=== PATIENT | female | born 1955 | race Caucasian/White ===

== ENCOUNTER 2016-10-28 15:13 | Emergency (ER) | payer BC ==
[~2016-10-28] VITALS: Ht 167.6 cm; Wt 75.0 kg
[~2016-10-28 15:13] MED LIST: ALPR-475 PO; ASPI325T4 PO; DOXY100T PO; IPRA3AMP NPPB; LISI-170 PO; NICO1PAT10 TD; PRED20TA PO; SIMV20TA PO
[2016-10-28 17:37] VITALS: BP 132/80
== END 2016-10-28 17:38 | disposition home or self-care (01) ==
LOC: ED 16:20
DX: I82.432 Acute embolism and thrombosis of left popliteal vein (principal); I10 Essential (primary) hypertension; J44.9 Chronic obstructive pulmonary disease, unspecified; Z88.0 Allergy status to penicillin; Z88.5 Allergy status to narcotic agent; Z88.6 Allergy status to analgesic agent; Z88.1 Allergy status to other antibiotic agents
CPT/HCPCS: 99284

== ENCOUNTER 2016-12-11 20:06 | Inpatient (IN) | payer BC ==
[~2016-12-11] VITALS: Ht 167.6 cm; Wt 78.1 kg
[~2016-12-11 20:06] MED LIST changes: +ASPI325T17 PO; -ASPI325T4 PO
[2016-12-11] MEDS ORDERED: ALBUTEROL/IPRATROPIUM 2.5MG/0.5MG, 3 ML ONE ×2 (20:26)
[2016-12-11] MEDS ORDERED: SODIUM CHLORIDE FLUSH 10ML SYR IVF ONE (20:30)
[2016-12-11] MEDS ORDERED: methylPREDNISolone SOD SUCC 125 MG/2 ML ONE (20:30)
[2016-12-11] MEDS ORDERED: methylPREDNISolone SOD SUCC 125 MG/2 ML IVP ONE (20:30)
[2016-12-11] MEDS ORDERED: SODIUM CHLORIDE 0.9% 1,000ML IVBOLUS ONE (20:30)
[2016-12-11] MEDS ORDERED: ALBUTEROL/IPRATROPIUM 2.5MG/0.5MG, 3 ML NPPB PRN (20:30)
[2016-12-11] MEDS ORDERED: ONDANSETRON 2MG/ML, 2ML ONE (20:30)
[2016-12-11] MEDS ORDERED: ONDANSETRON 2MG/ML, 2ML IVP ONE (20:30)
[2016-12-11 20:48] LABS: HEMATOCRIT 46.1 % (34.6-47.8); HEMOGLOBIN 15.8 g/dL (11.7-16.4); WHITE BLOOD COUNT 9.2 x10^3/uL (3.4-10)
[2016-12-11 21:01] LABS: ASPARTATE AMINO TRANSFERASE 14 U/L (15-37); BLOOD UREA NITROGEN 18 mg/dL (7-18)
[2016-12-11 21:05] LABS: IS PT STATUS REG ER OR PRE ER? YES
[2016-12-11] MEDS: ALBUTEROL/IPRATROPIUM 2.5MG/0.5MG, 3 ML NPPB SCH ×2 (21:08→21:15)
[2016-12-11] MEDS ORDERED: RIVA20TA PO (22:18)
[2016-12-11] MEDS ORDERED: TEMAZEPAM 15 MG CAPSULE PO PRN (23:30)
[2016-12-11] MEDS ORDERED: ACETAMINOPHEN 325 MG TABLET PO PRN (23:30)
[2016-12-11] MEDS ORDERED: DOCUSATE 100 MG CAPSULE PO PRN (23:30)
[2016-12-11] MEDS ORDERED: GUAIFENESIN/DM 200-20MG, 10ML UDC PO PRN (23:30)
[2016-12-11] MEDS ORDERED: ONDANSETRON ODT 4 MG PO PRN (23:30)
[2016-12-11] MEDS ORDERED: LABETALOL 5MG/ML, 20ML IVPush PRN (23:30)
[2016-12-11] MEDS ORDERED: ONDANSETRON 2MG/ML, 2ML IVPush PRN (23:30)
[2016-12-11] MEDS ORDERED: AZITHROMYCIN 500 MG TABLET PO SCH (23:30)
[2016-12-11] MEDS ORDERED: ENALAPRILAT 1.25 MG/ML, 2ML IVPush PRN (23:30)
[2016-12-11] MEDS ORDERED: HEPARIN 5,000 UNITS/ML, 1ML SQ SCH (23:30)
[2016-12-12] MEDS ORDERED: AZITHROMYCIN 250 MG TABLET ONE (00:18)
[2016-12-12] MEDS ORDERED: LEVOFLOXACIN 500 MG TABLET ONE (00:33)
[2016-12-12] MEDS: LEVOFLOXACIN 500 MG TABLET PO SCH ×2 (00:38→21:37)
[2016-12-12 01:55] VITALS: BP 161/98
[2016-12-12] MEDS: methylPREDNISolone SOD SUCC 40 MG/ML IVPush SCH ×4 (03:42→21:37)
[2016-12-12] MEDS: NICOTINE 14MG/24 HR PATCH.TD24 TD SCH (03:43)
[2016-12-12 06:35] VITALS: BP 157/96
[2016-12-12] MEDS: LISINOPRIL 10 MG TABLET PO SCH (10:12)
[2016-12-12] MEDS: FAMOTIDINE 20 MG TABLET PO SCH ×2 (10:13→21:36)
[2016-12-12] MEDS: RIVAROXABAN 20 MG TABLET PO SCH (10:18)
[2016-12-12] MEDS ORDERED: ALBUTEROL/IPRATROPIUM 2.5MG/0.5MG, 3 ML ONE (17:01)
[2016-12-12 17:18] VITALS: BP 160/96
[2016-12-12 19:50] VITALS: BP 154/92
[2016-12-12] MEDS: ALBUTEROL/IPRATROPIUM 2.5MG/0.5MG, 3 ML NPPB SCH (20:15)
[2016-12-12] MEDS ORDERED: SIMVASTATIN 20 MG TABLET PO SCH (21:00)
[2016-12-13 01:37] VITALS: BP 143/83
[2016-12-13] MEDS: ALBUTEROL/IPRATROPIUM 2.5MG/0.5MG, 3 ML NPPB SCH ×2 (02:15→06:27)
[2016-12-13] MEDS: RIVAROXABAN 20 MG TABLET PO SCH (06:00)
[2016-12-13] MEDS: methylPREDNISolone SOD SUCC 40 MG/ML IVPush SCH (06:00)
[2016-12-13] MEDS: NICOTINE 14MG/24 HR PATCH.TD24 TD SCH (06:01)
[2016-12-13 06:40] VITALS: BP 124/74
[2016-12-13] MEDS ORDERED: GUAI12009 PO (09:08)
[2016-12-13] MEDS ORDERED: LISI-167 PO (09:08)
[2016-12-13] MEDS ORDERED: IPRA3AMP NPPB (09:08)
[2016-12-13] MEDS ORDERED: SIMV20TA3 PO (09:08)
[2016-12-13] MEDS ORDERED: LEVO500T47 PO (09:08)
[2016-12-13] MEDS ORDERED: PRED10TA PO (09:08)
[2016-12-13] MEDS: FAMOTIDINE 20 MG TABLET PO SCH (10:05)
[2016-12-13] MEDS: LISINOPRIL 10 MG TABLET PO SCH (10:05)
[2016-12-13 12:14] VITALS: BP 151/84
[2016-12-13] MEDS ORDERED: ALBUTEROL/IPRATROPIUM 2.5MG/0.5MG, 3 ML NPPB SCH (16:00)
== END 2016-12-13 14:25 | disposition home or self-care (01) | DRG 189 ==
LOC: ED 23:16 → EDIP 23:17 → 4EST 12-12 00:55 → DCLOUNGE 12-13 14:00
PROVIDERS: ADMIT Internal Medicine; ATTEND Internal Medicine
DX: J96.01 Acute respiratory failure with hypoxia (principal); J44.1 Chronic obstructive pulmonary disease with (acute) exacerbation; I10 Essential (primary) hypertension; E03.9 Hypothyroidism, unspecified; E78.5 Hyperlipidemia, unspecified; F17.200 Nicotine dependence, unspecified, uncomplicated; Z79.01 Long term (current) use of anticoagulants; Z86.718 Personal history of other venous thrombosis and embolism; Z86.73 Personal history of transient ischemic attack (TIA), and cerebral infarction without residual deficits; Z91.19 Patient's noncompliance with other medical treatment and regimen
CPT/HCPCS: 36415; 71010; 80053; 83880; 84443; 84484; 85025; 85610; 85730; 93005; 94640; 96374; J1644; J7620; J2920; J2930; J7030

== ENCOUNTER 2017-01-15 13:05 | Emergency (ER) | payer BC ==
[~2017-01-15] VITALS: Ht 167.6 cm; Wt 66.5 kg
[~2017-01-15 13:05] MED LIST changes: +GUAI12009 PO; +LEVO500T47 PO; +LISI-167 PO; +NICO-485 TD; -NICO1PAT10 TD; +PRED10TA PO; +RIVA20TA PO; +SIMV20TA3 PO
[2017-01-15 13:08] VITALS: BP 160/85
== END 2017-01-15 15:40 | disposition home or self-care (01) ==
LOC: ED 15:24
DX: M25.462 Effusion, left knee (principal); G89.11 Acute pain due to trauma; E78.5 Hyperlipidemia, unspecified; I10 Essential (primary) hypertension; W01.0XXA Fall on same level from slipping, tripping and stumbling without subsequent striking against object, initial encounter; Y93.01 Activity, walking, marching and hiking; Y92.89 Other specified places as the place of occurrence of the external cause; Y99.8 Other external cause status
CPT/HCPCS: 29505; 99284

== ENCOUNTER 2017-06-12 09:24 | Emergency (ER) | payer BC ==
[~2017-06-12] VITALS: Ht 167.6 cm; Wt 79.7 kg
[2017-06-12 10:44] VITALS: BP 128/98
== END 2017-06-12 10:45 | disposition home or self-care (01) ==
LOC: ED 09:52
DX: M25.561 Pain in right knee (principal); M17.11 Unilateral primary osteoarthritis, right knee; I10 Essential (primary) hypertension; J44.9 Chronic obstructive pulmonary disease, unspecified; G62.9 Polyneuropathy, unspecified
CPT/HCPCS: 29505; 99284